=== PATIENT | female | born 1990 | race Caucasian/White ===

== ENCOUNTER 2020-12-18 23:35 | Inpatient (IN) ==
[2020-12-18] MEDS ORDERED: TRANEXAMIC ACID / 0.7% NACL 1,000 MG/100 ML BAG IV STA (23:39)
[2020-12-18] MEDS ORDERED: SODIUM CHLORIDE 0.9% 1000ML 1,000 ML IV SCH (23:45)
[2020-12-18] MEDS ORDERED: OXYTOCIN 20 UNITS in LACTATED RINGER'S 1,000 ML IV SCH (23:45)
[2020-12-18 23:59] LABS: Hematocrit (blood only) 28.2 % (37-47); Hemoglobin 9.8 g/dL (12.0-16.0); Mean Corpuscular Hemoglobin 31.5 pg (25-34); Mean Corpuscular Hgb Conc 34.8 g/dL (32-36); Mean Corpuscular Volume 90.7 fL (80-100); Mean Platelet Volume 11.1 fL (7.4-10.4); Platelet Count 256 K/uL (130-400); RDW Coefficient of Variation 13.3 % (11.5-14.5); RDW Standard Deviation 43.7 fL (36.4-46.3); Red Blood Count 3.11 M/uL (4.2-5.4); White Blood Count 22.27 K/uL (4.8-10.8)
--- NOTE | 2020-12-19 00:04 | Anesthesiology Consultation ---
Date of Service December 19, 2020 Assessment & Plan Chart Review Chart Review: Acceptable Risk for Surgery Consults Requested none History Height/Weight Weight: 87.7 kg Medications Active Medications Generic Name Dose Route Start Last Admin Trade Name Sumanth PRN Reason Stop Dose Admin Sodium Chloride 1,000 mls @ 999 mls/hr 12/18/20 23:45 12/18/20 23:59 Nss 1000ml IV 12/19/20 00:45 999 mls/hr .Q1H1M CHELE Administration Oxytocin 20 units/ Lactated 1,002 mls @ 125 mls/hr 12/18/20 23:45 12/18/20 23:57 Ringer's IV 01/17/21 23:44 125 mls/hr .Q8H1M CHELE Administration NPO Date Last Intake of Fluids: 12/19/20 Time Last Intake of Fluids: 22:00 Date Last Intake of Solids: 12/18/20 Social History Smoking Status: Never smoker Physical Exam Vital Signs Last Vital Signs Temp 36.8 C 12/19/20 00:03 Pulse 99 H 12/18/20 23:40 Resp 22 12/18/20 23:40 BP 118/83 12/18/20 23:40 Pulse Ox 100 12/18/20 23:40 Testing Laboratory Results 12/18/20 23:51 12/18/20 23:51 HCG, Quant Pending
[2020-12-19] MEDS ORDERED: fentaNYL citrate 100 MCG/2 ML VIAL IV PRN (00:07)
[2020-12-19] MEDS ORDERED: ePHEDrine sulfate 50 MG/ML AMP IV PRN (00:07)
[2020-12-19] MEDS ORDERED: ONDANSETRON INJ 2 MG/ML 2 ML VIAL IV PRN (00:07)
[2020-12-19] MEDS ORDERED: ATROPINE SULFATE 0.1 MG/ML 10ML SYR IV PRN (00:07)
[2020-12-19] MEDS ORDERED: HYDROmorphone INJ 2 MG/ML SYR/VIAL IV PRN (00:07)
--- NOTE | 2020-12-19 00:09 | History & Physical Report ---
Date of Service December 19, 2020 Assessment & Plan (1) History of retained placenta in prior , currently in third trimester: Plan: will go to the OR for manual removal of placenta nd possible D&C consents obtained and signed History of Present Illness Chief Complaint: retained placenta vaginal bleeding Primary Care Provider: BERNARDO PCP 30 F [id number] with retained placenta after delivery by gold layer today. She was brought to [facility] ER with hypotension and vaginal bleeding after delivery of 9 lb female baby. I attempted to deliver placenta in the ER with no success so she will need to go to the OR for manual removal. Allergies Allergy/AdvReac Type Severity Reaction Status Date / Time No Known Allergies Allergy Verified 12/19/20 00:07 Home Medications Medication Instructions Recorded Confirmed Type No Known Home Medications 12/19/20 12/19/20 History Patient History Social History Smoking Status: Never smoker Preferred Language: Swedish OB History x3 retained placenta in last delivery 2012 [employer]UL[employer] MECH[employer]IC History wnl Review of Systems All systems reviewed & are unremarkable except as noted in HPI & below Physical Exam Constitutional: WD/WN, vitals as above + in distress Eyes: PERRL, conjunctivae normal, anicteric sclerae Respiratory: normal respiratory effort Cardiovascular: Rate/Rhythm: regular rate and regular rhythm Skin: no rashes, warm and dry Neurologic: patellar DTR's 2+ bilat, sensation intact Psychiatric: A+Ox3, euthymic affect Genitourinary: no vaginal lesions, no adnexal mass (placenta undeliverd. fundus at U. minimal bleeding now.) Results & Data ([facility]) Vital Signs (Past 12 Hours) Vital Signs Temp Pulse Resp BP Pulse Ox 12/19/20 00:03 36.8 C 12/18/20 23:40 99 H 22 118/83 100 Laboratory Results 12/18/20 12/18/20 12/18/20 23:45 23:51 23:51 WBC 22.27 H RBC 3.11 L Hgb 9.8 L Hct 28.2 L MCV 90.7 MCH 31.5 MCHC 34.8 RDW Std Deviation 43.7 RDW Coeff of Meseret 13.3 Plt Count 256 MPV 11.1 H PT 10.2 INR 1.0 APTT 24.8 PTT Ratio 0.9 COVID-19 Eval Order Covid19 at [facility]
[2020-12-19 00:11] LABS: Partial Thromboplastin Ratio 0.9; Partial Thromboplastin Time 24.8 Seconds (21.0-31.0); Prothrombin Time 10.2 Seconds (9.0-12.0)
[2020-12-19] MEDS ORDERED: ceFAZolin 2000MG 2,000 MG/15 ML SYR IV STA (00:17)
[2020-12-19] MEDS ORDERED: OXYTOCIN 30 UNITS/500 ML BAG IV PRN ×3 (00:17→03:46)
[2020-12-19] MEDS ORDERED: LACTATED RINGER'S 1,000 ML IV PRN (00:17)
[2020-12-19] MEDS ORDERED: ceFAZolin 2,000 MG/15 ML IV PUSH IV ONE (00:23)
[2020-12-19 00:24] LABS: Alanine Aminotransferase 17 U/L (12-78); Albumin Level 2.4 gm/dl (3.4-5.0); Aspartate Aminotransferase 16 U/L (15-37); BUN Creatinine Ratio 8.8 (10-20); Blood Urea Nitrogen 8 mg/dl (7-18); Calcium 7.6 mg/dl (8.5-10.1); Carbon Dioxide 19 mmol/L (21-32); Chloride 105 mmol/L (98-107); Est GFR (African American) 94.9 ml/min; Est GFR (Non-African American) 81.9 ml/min; Glucose 169 mg/dl (70-99); Potassium 3.8 mmol/L (3.5-5.1); Sodium 136 mmol/L (136-145)
[2020-12-19] MEDS ORDERED: LIDOCAINE 2% 2 ML VIAL/AMP(20MG/ML) INFIL ONE (00:26)
[2020-12-19] MEDS ORDERED: PROPOFOL IV EMULSION 10 MG/ML 20 ML VIAL IV ONE (00:26)
[2020-12-19 00:27] LABS: Albumin Globulin Ratio 0.7 (0.9-2); Alkaline Phosphatase 100 U/L (45-117); Bilirubin,Total 0.6 mg/dl (0.2-1); Globulin 3.3 gm/dl (2.5-4.0); Total Protein 5.7 gm/dl (6.4-8.2)
[2020-12-19] MEDS ORDERED: fentaNYL citrate 100 MCG/2 ML VIAL ONE (00:27)
[2020-12-19] MEDS ORDERED: SUCCINYLCHOLINE CHLORIDE 20 MG/ML 10 ML VIAL IV ONE (00:29)
--- NOTE | 2020-12-19 00:34 | Emergency Department Note ---
Impression & Plan hemorrhage, Retained placenta ED Provider Note NAME: PEREZ LANGSTON AGE: 30 SEX: F : 1990 ARRIVES VIA: Ambulance INFORMANT: Patient, EMS ED PROVIDER(S): Aamir Rob DO CHIEF COMPLAINT: bleeding HPI: the patient is a three para three, 30-year-old female who presented to the emergency department by ambulance. The patient delivered at home using a reducing salon attendant. With her second which was many years ago she had a similar episode for bleeding which turned out to be a retained placenta. She has been having difficulty delivering the placenta. The child was delivered at approximately 2118 at the home utilizing a reducing salon attendant. The patient had very severe bleeding and 911 was called. The patient was evaluated by EMS. We received a prehospital notification from EMS. We also received another call after the mechanical project manager arrived. The patient received IV fluids prior to arrival with significant improvement of her hypotension. At this time the patient states that she feels cold and short of breath. She denies having any chest pain. She denies having any lower extremity swelling. The patient's bleeding has significantly improved. She relates that she had to go to the operating room the last time for retained placenta. She denies that this was related to a placenta acreta or other placental infiltration of the uterus. The patient states that she is blood type A positive. ROS: See above HPI for pertinent positives & negatives. A total of 10 systems reviewed and were otherwise negative. PAST MEDICAL HISTORY: See Below PAST SURGICAL HISTORY: See Below FAMILY HISTORY: See Below SOCIAL HISTORY: See Below HOME MEDICATIONS: See Below ALLERGIES: See Below VITALS: See Below PHYSICAL EXAMINATION: GENERAL: the patient is awake and alert. She is somewhat anxious appearing. EYES: The conjunctivae are clear. The pupils are round and reactive. EARS, NOSE, MOUTH AND THROAT: The nose is without any evidence of any deformity. Mucous membranes are dry. NECK: The neck is nontender and supple. RESPIRATORY: Normal respiratory effort is noted there is no evidence of wheezing rhonchi or rales CARDIOVASCULAR: tachycardic rate with regular rhythm was noted. There was no def inite murmur. GASTROINTESTINAL: the abdomen was mildly distended. The frontal height was above the umbilicus. The uterus is firm. There is significant uterine tenderness to palpation. MUSCULOSKELETAL/EXTREMITIES: There is no evidence of gross deformity full range of motion is noted in the hips and shoulders. SKIN: skin was warm and dry. Pedal edema was noted bilaterally. NEUROLOGIC: Patient is awake alert and oriented x3. MEDICAL DECISION MAKING: the patient is a 30-year-old female who presented to the emergency department for hemorrhaging. The patient delivered at home with a reducing salon attendant. The patient presented to the emergency department by ambulance. She was treated with IV fluids. She was evaluated by the ANCHORER physician in the emergency department. There were attempts to have the patient deliver the placenta but this was unsuccessful. The patient had a Dickey catheter place. The patient was anemic but continued to hemorrhage. Blood transfusion was ordered by myself. I did consent the patient for blood. Ultimately she was felt to be a better candidate for management in the operating room. She was taken in the OR by ANCHORER for further management. Triage Nursing notes reviewed. Prior medical records reviewed Vital Signs: reviewed and remarkable for hypotension and tachycardia. Differential diagnosis: Etiologies such as threatened AB, miscarriage, ectopic , dysfunction uterine bleeding, bleeding dyscrasia, trauma, infection, as well as others were entertained. ER treatment provided: See below Diagnostics interpreted by me: ECG: none Cardiac Monitoring: An order was placed for continuous cardiac monitoring. The monitor shows a rate of 95 bpm with sinus rhythm. Laboratory studies: As stated above and show below. Imaging studies: See below Consultation(s): I discussed this case with Dr. Ray prior to the patient arriving. He was able to arrive at the same time as the patient and he was at the bedside upon the patient's arrival. ED COURSE: Procedures: none PDMP:reviewed and no issues Critical Care: I have personally spent greater than 45 minutes of critical care time in the direct management of this patient. This includes bedside care, interpretation of diagnostic studies, and testing, discussion with consultants, patient, and family members, and other required patient management activities. This 45 minutes is in excess of all separately billable procedures. Past Med/Surg History Medical History History of retained placenta in prior , currently in third trimester Social History Smoking Status: Never smoker Preferred Language: Swedish Allergies Allergies Allergy/AdvReac Type Severity Reaction Status Date / Time No Known Allergies Allergy Verified 12/19/20 00:07 Home Meds Home Medications Medication Instructions Recorded Confirmed No Known Home Medications 12/19/20 12/19/20 Results & Data (ED) Vital Signs Vital Signs - 24 hr 12/18/20 23:40 12/18/20 23:46 12/19/20 00:00 Temperature Temperature Source Pulse Rate 99 H 87 90 Pulse Rate from SpO2 Sensor 88 89 Respiratory Rate 22 18 20 Blood Pressure 118/83 118/83 105/62 Blood Pressure Mean 94 94 76 Pulse Oximetry 100 100 100 Oxygen Delivery Method Oxymask Oxygen Flow Rate 10 Sepsis Recent Fever Within 48 Hours No Sepsis New/Unexplained Change in Mental Status N/A Sepsis Action Taken by Nursing No Action Required 12/19/20 00:03 12/19/20 00:16 12/19/20 00:30 Temperature 36.8 C Temperature Source Oral Pulse Rate 90 72 Pulse Rate from SpO2 Sensor 89 72 Respiratory Rate 21 19 Blood Pressure 130/68 120/66 Blood Pressure Mean 88 84 Pulse Oximetry 100 100 Oxygen Delivery Method Oxygen Flow Rate Sepsis Recent Fever Within 48 Hours Sepsis New/Unexplained Change in Mental Status Sepsis Action Taken by Nursing 12/19/20 00:42 12/19/20 00:45 12/19/20 00:53 Temperature Temperature Source Pulse Rate 92 H 87 Pulse Rate from SpO2 Sensor 92 H 87 Respiratory Rate 18 22 Blood Pressure 125/68 75/35 L Blood Pressure Mean 87 48 Pulse Oximetry 100 100 100 Oxygen Delivery Method Nasal Cannula Oxygen Flow Rate 3 Sepsis Recent Fever Within 48 Hours Sepsis New/Unexplained Change in Mental Status Sepsis Action Taken by Nursing 12/19/20 00:58 12/19/20 01:05 12/19/20 01:23 Temperature 36.9 C 36.9 C Temperature Source Oral Oral Pulse Rate 95 H 91 H 95 H Pulse Rate from SpO2 Sensor 96 H Respiratory Rate 22 17 20 Blood Pressure 81/38 L 86/46 L 95/57 L Blood Pressure Mean 52 59 69 Pulse Oximetry 100 100 98 Oxygen Delivery Method Oxygen Flow Rate 3 Sepsis Recent Fever Within 48 Hours Sepsis New/Unexplained Change in Mental Status Sepsis Action Taken by [facility] Medications Current Medication List: was personally reviewed by me Laboratory Data Attestation: I reviewed the patient's lab results. Result diagrams: 12/18/20 23:51 12/18/20 23:51 Lab Results 12/18/20 12/18/20 12/18/20 Range/Units 23:45 23:45 23:51 WBC (4.8-10.8) K/uL RBC (4.2-5.4) M/uL Hgb (12.0-16.0) g/dL Hct (37-47) % MCV (80-100) fL MCH (25-34) pg MCHC (32-36) g/dL RDW Std Deviation (36.4-46.3) fL RDW Coeff of Meseret (11.5-14.5) % Plt Count (130-400) K/uL MPV (7.4-10.4) fL Immature Gran % (Auto) % Neut % (Auto) % Lymph % (Auto) % [place] % (Auto) % Eos % (Auto) % Baso % (Auto) % Neut # (Auto) (1.4-6.5) K/uL Lymph # (Auto) (1.2-3.4) K/uL [place] # (Auto) (0.11-0.59) K/uL Eos # (Auto) (0-0.5) K/uL Baso # (Auto) (0-0.2) K/uL Immature Gran # (Auto) (0.00-0.02) K/uL RBC Morphology PT (9.0-12.0) Seconds INR (0.9-1.1) APTT (21.0-31.0) Seconds PTT Ratio Sodium (136-145) mmol/L Potassium (3.5-5.1) mmol/L Chloride (98-107) mmol/L Carbon Dioxide (21-32) mmol/L Anion Gap (3-11) BUN (7-18) mg/dl Creatinine (0.6-1.2) mg/dl Est Cr Clr Drug Dosing Est GFR ( Amer) ml/min Est GFR (Non-Af Amer) ml/min BUN/Creatinine Ratio (10-20) Glucose (70-99) mg/dl Calcium (8.5-10.1) mg/dl Total Bilirubin (0.2-1) mg/dl AST (15-37) U/L ALT (12-78) U/L Alkaline Phosphatase (45-117) U/L Total Protein (6.4-8.2) gm/dl Albumin (3.4-5.0) gm/dl Globulin (2.5-4.0) gm/dl Albumin/Globulin Ratio (0.9-2) HCG, Quant mIU/ml COVID-19 Eval Order Covid19 at [facility] SARS-CoV-2 (PCR) NEGATIVE (Negative) Blood Type A Positive Antibody Screen NEGATIVE Crossmatch See Detail 12/18/20 12/18/20 12/18/20 Range/Units 23:51 23:51 23:51 WBC 22.27 H (4.8-10.8) K/uL RBC 3.11 L (4.2-5.4) M/uL Hgb 9.8 L (12.0-16.0) g/dL Hct 28.2 L (37-47) % MCV 90.7 (80-100) fL MCH 31.5 (25-34) pg MCHC 34.8 (32-36) g/dL RDW Std Deviation 43.7 (36.4-46.3) fL RDW Coeff of Meseret 13.3 (11.5-14.5) % Plt Count 256 (130-400) K/uL MPV 11.1 H (7.4-10.4) fL Immature Gran % (Auto) 0.4 % Neut % (Auto) 91.0 % Lymph % (Auto) 4.2 % [place] % (Auto) 4.3 % Eos % (Auto) 0.0 % Baso % (Auto) 0.1 % Neut # (Auto) 20.27 H (1.4-6.5) K/uL Lymph # (Auto) 0.93 L (1.2-3.4) K/uL [place] # (Auto) 0.96 H (0.11-0.59) K/uL Eos # (Auto) 0.01 (0-0.5) K/uL Baso # (Auto) 0.02 (0-0.2) K/uL Immature Gran # (Auto) 0.08 H (0.00-0.02) K/uL RBC Morphology Unremarkable PT 10.2 (9.0-12.0) Seconds INR 1.0 (0.9-1.1) APTT 24.8 (21.0-31.0) Seconds PTT Ratio 0.9 Sodium 136 (136-145) mmol/L Potassium 3.8 (3.5-5.1) mmol/L Chloride 105 (98-107) mmol/L Carbon Dioxide 19 L (21-32) mmol/L Anion Gap 12.0 H (3-11) BUN 8 (7-18) mg/dl Creatinine 0.93 (0.6-1.2) mg/dl Est Cr Clr Drug Dosing Not Reportable Est GFR ( Amer) 94.9 ml/min Est GFR (Non-Af Amer) 81.9 ml/min BUN/Creatinine Ratio 8.8 L (10-20) Glucose 169 H (70-99) mg/dl Calcium 7.6 L (8.5-10.1) mg/dl Total Bilirubin 0.6 (0.2-1) mg/dl AST 16 (15-37) U/L ALT 17 (12-78) U/L Alkaline Phosphatase 100 (45-117) U/L Total Protein 5.7 L (6.4-8.2) gm/dl Albumin 2.4 L (3.4-5.0) gm/dl Globulin 3.3 (2.5-4.0) gm/dl Albumin/Globulin Ratio 0.7 L (0.9-2) HCG, Quant mIU/ml COVID-19 Eval Order SARS-CoV-2 (PCR) (Negative) Blood Type Antibody Screen Crossmatch 12/18/20 Range/Units 23:51 WBC (4.8-10.8) K/uL RBC (4.2-5.4) M/uL Hgb (12.0-16.0) g/dL Hct (37-47) % MCV (80-100) fL MCH (25-34) pg MCHC (32-36) g/dL RDW Std Deviation (36.4-46.3) fL RDW Coeff of Meseret (11.5-14.5) % Plt Count (130-400) K/uL MPV (7.4-10.4) fL Immature Gran % (Auto) % Neut % (Auto) % Lymph % (Auto) % [place] % (Auto) % Eos % (Auto) % Baso % (Auto) % Neut # (Auto) (1.4-6.5) K/uL Lymph # (Auto) (1.2-3.4) K/uL [place] # (Auto) (0.11-0.59) K/uL Eos # (Auto) (0-0.5) K/uL Baso # (Auto) (0-0.2) K/uL Immature Gran # (Auto) (0.00-0.02) K/uL RBC Morphology PT (9.0-12.0) Seconds INR (0.9-1.1) APTT (21.0-31.0) Seconds PTT Ratio Sodium (136-145) mmol/L Potassium (3.5-5.1) mmol/L Chloride (98-107) mmol/L Carbon Dioxide (21-32) mmol/L Anion Gap (3-11) BUN (7-18) mg/dl Creatinine (0.6-1.2) mg/dl Est Cr Clr Drug Dosing Est GFR ( Amer) ml/min Est GFR (Non-Af Amer) ml/min BUN/Creatinine Ratio (10-20) Glucose (70-99) mg/dl Calcium (8.5-10.1) mg/dl Total Bilirubin (0.2-1) mg/dl AST (15-37) U/L ALT (12-78) U/L Alkaline Phosphatase (45-117) U/L Total Protein (6.4-8.2) gm/dl Albumin (3.4-5.0) gm/dl Globulin (2.5-4.0) gm/dl Albumin/Globulin Ratio (0.9-2) HCG, Quant 99856 mIU/ml COVID-19 Eval Order SARS-CoV-2 (PCR) (Negative) Blood Type Antibody Screen Crossmatch Administered Medications Oxytocin 20 units/ Lactated (Ringer's) 1,002 mls @ 125 mls/hr IV .Q8H1M CHELE Stop: 01/17/21 23:44 Last Admin: 12/18/20 23:57 Dose: 125 mls/hr Documented by: [id number] Cosigned by: [id number] Discontinued Medications Sodium Chloride (Nss 1000ml) 1,000 mls @ 999 mls/hr IV .Q1H1M CHELE Stop: 12/19/20 00:45 Last Admin: 12/18/20 23:59 Dose: 999 mls/hr Documented by: [id number] Tranexamic Acid (Tranexamic Acid / 0.7% Nacl) 1,000 mg in 100 mls @ 600 mls/hr IV NOW STA Stop: 12/18/20 23:48 Last Admin: 12/19/20 00:06 Dose: Not Given Documented by: [id number] Cefazolin Sodium (Ancef 2000mg) 2,000 mg in 15 mls @ 3.75 mls/min IV NOW STA Stop: 12/19/20 00:20 Last Admin: 12/19/20 00:25 Dose: 3.75 mls/min Documented by: [id number] Discharge Plan Visit Data Chief Complaint: Vaginal Bleeding Stated Complaint: Child ED Provider: Aamir Rob Discharge Problem: hemorrhage, Retained placenta Patient Disposition: Being Evaluated by Surgeon Discharge Instructions Interventions: ED Discharge Assessment Last Done: 12/19/20 01:23 Forms Stand Alone Forms: [employer] [facility] [employer] Prescriptions Prescriptions: No Action No Known Home Medications RF: 0 Referrals Referrals: PCP,NO [Primary Care Provider] -
[2020-12-19 00:45] LABS: Basophils # (auto) 0.02 K/uL (0-0.2); Basophils % (auto) 0.1 %; Eosinophils # (auto) 0.01 K/uL (0-0.5); Immature Granulocytes # (auto) 0.08 K/uL (0.00-0.02); Immature Granulocytes % (auto) 0.4 %; Lymphocytes # (auto) 0.93 K/uL (1.2-3.4); Lymphocytes % (auto) 4.2 %; Monocytes # (auto) 0.96 K/uL (0.11-0.59); Monocytes % (auto) 4.3 %; Neutrophils # (auto) 20.27 K/uL (1.4-6.5); RBC Morphology Unremarkable
[2020-12-19] MEDS ORDERED: SODIUM CHLORIDE 0.9% 250 ML IV PRN (00:53)
[2020-12-19] MEDS ORDERED: miSOPROStoL 200 MCG TAB ONE ×2 (02:18→02:21)
[2020-12-19] MEDS ORDERED: PHENYLEPHRINE 100MCG/ML 5ML SYR ONE (02:20)
[2020-12-19] MEDS ORDERED: OXYTOCIN 10 UNITS/ML VIAL ONE (02:20)
--- NOTE | 2020-12-19 02:42 | Post Operative Brief Note ---
Immediate Post Op Note v1 Date of Surgery December 19, 2020 Pre & Post Diagnosis Operation Date: 12/19/20 01:00 <No data on this case meets the specified criteria> retained placenta I identified the patient and participated in the time-out.: Yes Procedure Ezio removal of placenta under ultrasound guidance Operation Date: 12/19/20 01:00 <No data on this case meets the specified criteria> Surgeon Yovani Ray MD Pan Washer none Estimated Blood Loss 500 Findings Consistent with Post-Op Diagnosis retained placenta Fluids LR 2000 2 units blood Specimens placenta and cord Drains Diceky Catheter Complications none Disposition Accompanied Patient To Recovery: Yes Overlapping Procedure I was present for: the critical portions of procedure. I was immediately available: during the entire case. Back up surgeon: was not required during procedure.
[2020-12-19] MEDS ORDERED: KETOROLAC 30 MG/ML VIAL IV PRN (02:52)
--- NOTE | 2020-12-19 03:09 | Anesthesiology Progress Note ---
Date of Service December 19, 2020 Anesthesia Post Procedure Vital Signs Vital Signs: Temp Pulse Pulse Resp BP BP Pulse Ox 12/19/20 03:00 90 18 111/71 100 12/19/20 02:50 94 H 20 113/71 100 12/19/20 02:40 36.2 C L 95 H 18 99/56 L 100 12/19/20 01:23 36.9 C 95 H 20 95/57 L 98 12/19/20 01:05 36.9 C 91 H 17 86/46 L 100 12/19/20 00:58 95 H 22 81/38 L 100 12/19/20 00:53 87 22 75/35 L 100 12/19/20 00:45 92 H 18 125/68 100 12/19/20 00:42 100 12/19/20 00:30 72 19 120/66 100 12/19/20 00:16 90 21 130/68 100 12/19/20 00:03 36.8 C 12/19/20 00:00 90 20 105/62 100 12/18/20 23:46 87 18 118/83 100 12/18/20 23:40 99 H 22 118/83 100 Transfer of Care Handoff Completed per policy Notes Mental Status: alert / awake / arousable and participated in evaluation Patient Amnestic to Procedure: Yes Nausea / Vomiting: adequately controlled Pain: adequately controlled Airway Patency, RR, SpO2: stable & adequate BP & HR: stable & adequate Hydration State: stable & adequate Anesthetic Complications: no major complications apparent
[2020-12-19] MEDS ORDERED: DIPHTHERIA/TETANUS/PERTUSSIS 0.5 ML SYR/VIAL IM ONE (03:46)
[2020-12-19] MEDS ORDERED: ACETAMINOPHEN 325 MG TAB PO PRN (03:46)
[2020-12-19] MEDS ORDERED: IBUPROFEN 600 MG TAB PO PRN (03:46)
[2020-12-19] MEDS ORDERED: HYDROCORTISONE ACETATE 25 MG SUPP PR PRN (03:46)
[2020-12-19] MEDS ORDERED: SUPERCREAM 0.870% 15 GM JAR EXT PRN (03:46)
[2020-12-19] MEDS ORDERED: bisacodyL 10 MG SUPP PR PRN (03:46)
[2020-12-19] MEDS ORDERED: miSOPROStoL 200 MCG TAB PR ONE (03:46)
[2020-12-19] MEDS ORDERED: BENZOCAINE 20% AER SPR 82.5 GM CAN EXT PRN (03:46)
--- NOTE | 2020-12-19 03:54 | Operative Report (OR) ---
DATE OF SURGERY: 12/19/2020. PREOPERATIVE DIAGNOSIS: Retained placenta. POSTOPERATIVE DIAGNOSIS: Retained placenta. PROCEDURE: Manual removal of placenta under ultrasound guidance. SURGEON: Yovani Ray MD ANESTHESIA: General. COMPLICATIONS: None. ESTIMATED BLOOD LOSS: 500 mL. FINDINGS: Retained placenta meconium stained and appearance of possible abruption. CLINICAL HISTORY: The patient is a 30-year-old female, para 3-0-0-3, status post delivery at home by a train crew member on 12/18/2020, brought into the ER by EMS due to hypotension and severe bleeding with a retained placenta. The patient arrived into the ER, she was hypotensive, weak and in distress. IV line started. Pitocin was started. Attempts were made to remove the placenta, but this was not successful. Due to the bleeding, the patient was taken to the OR for a manual removal of the placenta. She was identified prior to procedure. DESCRIPTION OF PROCEDURE: Under satisfactory general anesthesia, the patient was prepped and draped in the usual sterile fashion. Timeout was called. Antibiotics were given preop. Dickey catheter was inserted in the ER, was draining reema concentrated urine. The patient had been bleeding, so 2 units of blood had been given prior to the start of the procedure. The cord was noted to be hanging out of the vagina. A gloved hand was inserted into the vagina and into the uterus under ultrasound guidance and the placenta noted to be a fundal insertion was then removed. After sweeping the fundus, there was no evidence of any retained placenta. Ultrasound guidance and ultrasound after the procedure revealed no evidence of any placental products that were retained. No bleeding post-procedure and fundus was below U and firm. Placenta was then submitted to pathology as a separate specimen. 1000 mcg of Cytotec was inserted rectally and 20 units of Pitocin were running in the IV for bleeding control. The fundus was firm below the U. No active bleeding was noted at the end of this procedure. Total fluids were 2000 mL of LR plus 2 units of packed cells. The final sponge and instrument counts were found to be correct. Mom placed on a stretcher and brought to recovery in stable condition. ESTIMATED BLOOD LOSS: 500 mL. COMPLICATIONS: None. Job ID: [id number] [facility]
[2020-12-19] MEDS ORDERED: KETOROLAC 30 MG/ML VIAL IV STA (03:59)
[2020-12-19 07:15] LABS: Basophils # (auto) 0.01 K/uL (0-0.2); Basophils % (auto) 0.1 %; Eosinophils # (auto) 0.01 K/uL (0-0.5); Eosinophils % (auto) 0.1 %; Hematocrit (blood only) 23.5 % (37-47); Hemoglobin 8.4 g/dL (12.0-16.0); Immature Granulocytes # (auto) 0.05 K/uL (0.00-0.02); Immature Granulocytes % (auto) 0.3 %; Lymphocytes # (auto) 1.25 K/uL (1.2-3.4); Lymphocytes % (auto) 7.4 %; Mean Corpuscular Hemoglobin 32.1 pg (25-34); Mean Corpuscular Hgb Conc 35.7 g/dL (32-36); Mean Corpuscular Volume 89.7 fL (80-100); Mean Platelet Volume 10.9 fL (7.4-10.4); Monocytes # (auto) 0.75 K/uL (0.11-0.59); Monocytes % (auto) 4.4 %; Neutrophils # (auto) 14.79 K/uL (1.4-6.5); Neutrophils % (auto) 87.7 %; Platelet Count 187 K/uL (130-400); RDW Coefficient of Variation 13.3 % (11.5-14.5); RDW Standard Deviation 43.3 fL (36.4-46.3); Red Blood Count 2.62 M/uL (4.2-5.4); White Blood Count 16.86 K/uL (4.8-10.8)
[2020-12-19] MEDS ORDERED: PRENATAL VITAMIN 1 TAB PO SCH (08:00)
[2020-12-19] MEDS ORDERED: FERROUS SULFATE 325 MG TAB PO SCH (08:00)
[2020-12-19] MEDS ORDERED: DOCUSATE SODIUM 100 MG CAP PO SCH (08:00)
--- NOTE | 2020-12-19 11:25 | Progress Note ---
Date of Service December 19, 2020 Assessment & Plan (1) Retained placenta: Plan: Pt doing well Improved and stable H/H D/c home with instructions Retained placenta detail: complete placenta Qualified Code(s): O73.0 - Retained placenta without hemorrhage (2) hemorrhage: hemorrhage type: unspecified Qualified Code(s): O72.1 - Other immediate hemorrhage Admission and Anticipated Discharge Date Admission Date: December 19, 2020 Results & Data ([facility]) Vital Signs (Past 12 Hours) Vital Signs Temp Pulse Pulse Pulse Resp BP BP 12/19/20 07:35 36.9 C 79 21 112/69 12/19/20 06:45 37.2 C 76 16 106/63 12/19/20 05:45 37.2 C 86 16 100/63 12/19/20 04:45 37.2 C 74 15 100/65 12/19/20 04:15 37.2 C 76 16 104/69 12/19/20 03:42 37.4 C 78 17 97/61 L 12/19/20 03:20 73 20 110/68 12/19/20 03:10 37.1 C 74 16 109/74 12/19/20 03:00 90 18 111/71 12/19/20 02:50 94 H 20 113/71 12/19/20 02:40 36.2 C L 95 H 18 99/56 L 12/19/20 01:23 36.9 C 95 H 20 95/57 L 12/19/20 01:05 36.9 C 91 H 17 86/46 L 12/19/20 00:58 95 H 22 81/38 L 12/19/20 00:53 87 22 75/35 L 12/19/20 00:45 92 H 18 125/68 12/19/20 00:42 12/19/20 00:30 72 19 120/66 12/19/20 00:16 90 21 130/68 12/19/20 00:03 36.8 C 12/19/20 00:00 90 20 105/62 12/18/20 23:46 87 18 118/83 12/18/20 23:40 99 H 22 118/83 Pulse Ox 12/19/20 07:35 99 12/19/20 06:45 99 12/19/20 05:45 99 12/19/20 04:45 100 12/19/20 04:15 100 12/19/20 03:42 99 12/19/20 03:20 100 12/19/20 03:10 100 12/19/20 03:00 100 12/19/20 02:50 100 12/19/20 02:40 100 12/19/20 01:23 98 12/19/20 01:05 100 12/19/20 00:58 100 12/19/20 00:53 100 12/19/20 00:45 100 12/19/20 00:42 100 12/19/20 00:30 100 12/19/20 00:16 100 12/19/20 00:03 12/19/20 00:00 100 12/18/20 23:46 100 12/18/20 23:40 100
--- NOTE | 2020-12-19 12:13 | Discharge Summary (DS) ---
DATE OF ADMISSION: 12/19/2020 DATE OF DISCHARGE: HISTORY OF PRESENT ILLNESS: The patient is a 30-year-old who delivered at home on 12/18/2020 b y her home hand cultivator. She presented to the Emergency Room with a retained placenta. In the Emergency R oom, Dr. Ray tried to manually remove the placenta and it was unsuccessful. The patient was taken to the operating room where she had a manual removal of placenta with dilation and curettage. Detail s are in the surgery note. Postop, she is doing well. She received a total of 2 units of blood. To day, she is doing well and being discharged home in stable condition. PAST MEDICAL HISTORY: History of retained placenta in previous . PAST SURGICAL HISTORY: None. SOCIAL HISTORY: The patient is and lives with spouse. Denies tobacco, drug, or alcohol use. FAMILY HISTORY: Noncontributory. ALLERGIES: No known drug allergies. REVIEW OF SYSTEMS: Negative except as dictated in the HPI. PHYSICAL EXAMINATION: VITAL SIGNS: Today on 12/19/2020, blood pressure is 112/69, pulse 79, respirations 21, temperature 3 6.9. HEART: S1 and S2, regular rhythm and rate. LUNGS: Clear to auscultation bilaterally. ABDOMEN: Nondistended, nontender. PELVIC: Decreased lochia. CONDITION ON DISCHARGE: Stable. OPERATIONS: Retained placenta status post home delivery. DISCHARGE DIAGNOSIS: Postoperative after retained placenta. PLAN ON DISCHARGE: The patient is discharged home with instructions regarding activity, diet, and fo [facility]. Job ID: [id number]
--- NOTE | 2020-12-19 13:22 | Ultrasound Report ---
US guide intraoperative CLINICAL INDICATION: MN ^PLACENTA REMOVAL. TECHNIQUE: 12 views were obtained by ultrasound in the OR with the above procedure. Comparison: None available at the time of this dictation. FINDINGS/IMPRESSION: Multiple ultrasound images were obtained of surgical removal of placenta. Please correlate with intraoperative fluoroscopy and operative report. ACT 112: Negative or not required by law. Electronically signed by: Suleiman Otto M.D. 12/19/2020 1:21 PM
[2020-12-20] MEDS ORDERED: bisacodyL 5 MG TABEC PO SCH (20:00)
== END 2020-12-19 14:22 | disposition home or self-care (01) | DRG 769 ==
LOC: ED 23:35 → 4S2 12-19 01:30 → OR 12-19 01:30 → 4S2 12-19 01:31